=== PATIENT | female | born 1990 | race Caucasian/White ===

== ENCOUNTER 2017-04-26 10:23 | Emergency (ER) | payer MEDICAID ==
[~2017-04-26] VITALS: Ht 154.9 cm; Wt 54.4 kg
[2017-04-26 10:28] VITALS: Ht 154.9 cm; Wt 54.4 kg
[2017-04-26 11:33] LABS: CALCIUM 8.6 mg/dL (8.5-10.1); CHLORIDE SERUM 106 mmol/L (98-107); CREATININE SERUM 0.7 mg/dL (0.6-1.0); GFR1 > 60 mL/min; GLUCOSE SERUM 101 mg/dL (74-106); POTASSIUM SERUM 3.5 mmol/L (3.5-5.1); SODIUM SERUM 141 mmol/L (136-145)
[2017-04-26 11:40] LABS: ALBUMIN 3.9 g/dL (3.4-5.0); ALKALINE PHOSPHATASE 41 U/L (46-116); ALT/SGPT 22 U/L (14-59); AST/SGOT 15 U/L (15-37); BILIRUBIN TOTAL 0.3 mg/dL (0.20-1.00); TOTAL PROTEIN, SERUM 7.4 g/dL (6.4-8.2)
[2017-04-26 11:51] LABS: BASOPHIL % 0.4 % (0-2); PLATELET COUNT 268 x10^3mcL (130-400); RED CELL DISTRIBUTION WIDTH 12.8 % (11.5-14.5)
[2017-04-26 12:25] VITALS: BP 111/42
== END 2017-04-26 12:25 | disposition home or self-care (01) ==
LOC: ED 10:23
PROVIDERS: Emergency Medicine
DX: R55 Syncope and collapse (principal); R56.9 Unspecified convulsions
CPT/HCPCS: 83880; J1885; J2060

== ENCOUNTER 2017-05-11 19:00 | Emergency (ER) | payer MEDICAID ==
[~2017-05-11] VITALS: Ht 162.6 cm; Wt 59.0 kg
[2017-05-11 19:22] VITALS: Ht 162.6 cm; Wt 59.0 kg
[2017-05-11 21:26] LABS: BASOPHIL % 0.3 % (0-2); PLATELET COUNT 214 x10^3mcL (130-400); RED CELL DISTRIBUTION WIDTH 12.7 % (11.5-14.5)
[2017-05-11 21:31] LABS: AMPHETAMINE QUAL UR NONE DETECTED (NEG <=1000)
[2017-05-11 21:47] LABS: CALCIUM 8.8 mg/dL (8.5-10.1); CARBON DIOXIDE 26.6 mmol/L (21-32); CHLORIDE SERUM 105 mmol/L (98-107); CREATININE SERUM 0.7 mg/dL (0.6-1.0); GFR1 > 60 mL/min; GLUCOSE SERUM 94 mg/dL (74-106); POTASSIUM SERUM 4.2 mmol/L (3.5-5.1); SODIUM SERUM 141 mmol/L (136-145)
[2017-05-11 21:51] LABS: ALBUMIN 3.9 g/dL (3.4-5.0); ALKALINE PHOSPHATASE 44 U/L (46-116); ALT/SGPT 18 U/L (14-59); AST/SGOT 25 U/L (15-37); BILIRUBIN TOTAL 0.17 mg/dL (0.20-1.00); TOTAL PROTEIN, SERUM 7.3 g/dL (6.4-8.2)
[2017-05-12 00:05] VITALS: BP 114/79
== END 2017-05-12 00:05 | disposition home or self-care (01) ==
LOC: ED 19:00
PROVIDERS: Emergency Medicine
DX: M79.1 Myalgia (principal); Y04.2XXA Assault by strike against or bumped into by another person, initial encounter
CPT/HCPCS: G0480; J1885; J2060; J7030; Q9967